=== PATIENT | female | born 1995 | race Two or more races ===

== ENCOUNTER 2019-04-29 00:14 | Inpatient (IN) | payer MEDICAID, OTHER ==
[~2019-04-29] VITALS: Ht 157.5 cm; Wt 60.8 kg
[2019-04-29] MEDS ORDERED: OMEP10 PO (01:56)
[2019-04-29] MEDS ORDERED: SODIUM CHLORIDE 0.9% 1,000 ML IV ONE (02:00)
[2019-04-29 03:02] LABS: BASOPHILS % (AUTO) 0.3 % (0.0-2.0); EOSINOPHILS % (AUTO) 0.3 % (1.0-6.0); HEMATOCRIT 41.7 % (36-46); LYMPHOCYTES # (AUTO) 2.3 K/uL (1.0-4.8); LYMPHOCYTES % (AUTO) 22.9 % (22.0-44.0); MEAN CORPUSCULAR HEMOGLOBIN 30.3 pg (26.0-34.0); MEAN CORPUSCULAR HGB CONC 33.6 G/dL (31.0-37.0); MEAN CORPUSCULAR VOLUME 90 fL (80-100); MONOCYTES # (AUTO) 0.5 K/uL (0.1-1.0); MONOCYTES % (AUTO) 5.1 % (2.0-9.0); NEUTROPHILS # (AUTO) 7.3 K/uL (1.8-7.7); NEUTROPHILS % (AUTO) 71.4 % (40.0-70.0); PLATELET COUNT (AUTO) 339 K/uL (150-450); RED BLOOD CELL COUNT(AUTO) 4.63 MIL/uL (4.00-5.20); RED CELL DISTRIBUTION WIDTH 12.5 % (11.5-14.5)
[2019-04-29 03:08] LABS: ANION GAP 13 mmol/L (8-16); CALCIUM, TOTAL 10.2 mg/dL (8.8-10.5); CARBON DIOXIDE 24 mmol/L (22-29); CHLORIDE 100 mmol/L (98-107); CREATININE 0.61 mg/dL (0.60-1.30); GLOMERULAR FILTR. RATE CALC > 60 mL/min (>60); GLUCOSE,RANDOM 105 mg/dL (70-110); SODIUM SERUM 137 mmol/L (136-145); UREA NITROGEN, BLOOD 7 mg/dL (7-18)
[2019-04-29 03:11] LABS: ALANINE AMINOTRANSFERASE 69 U/L (12-78); ALBUMIN 5.2 g/dL (3.4-5.0); ALKALINE PHOSPHATASE 40 U/L (46-116); ASPARTATE AMINOTRANSFERASE 27 U/L (15-37); BILIRUBIN,TOTAL 0.4 mg/dL (0.1-1.0); TOTAL PROTEIN, SERUM 9.2 g/dL (6.4-8.2)
[2019-04-29 03:14] LABS: ACETAMINOPHEN < 2 mcg/mL (10-30)
[2019-04-29 03:14] LABS: AMPHET/METH SCREEN,URINE NEGATIVE (NEGATIVE); BARBITURATE SCREEN, URINE NEGATIVE (NEGATIVE); BENZODIAZEPINES SCREEN,URINE NEGATIVE (NEGATIVE); CANNABINOID SCREEN,URINE NEGATIVE (NEGATIVE); COCAINE SCREEN,URINE NEGATIVE (NEGATIVE); METHADONE SCREEN, URINE NEGATIVE (NEGATIVE); OPIATE SCREEN,URINE NEGATIVE (NEGATIVE)
[2019-04-29 03:15] LABS: PHENCYCLIDINE SCREEN,URINE NEGATIVE (NEGATIVE)
[2019-04-29 03:21] LABS: SALICYLATE 1.5 mg/dL (2.8-20.0)
[2019-04-29 03:39] LABS: LACTIC ACID 1.3 mmol/L (0.4-2.0)
[2019-04-29 06:07] LABS: SALICYLATE 10.9 mg/dL (2.8-20.0)
[2019-04-29 06:16] LABS: ACETAMINOPHEN < 2 mcg/mL (10-30)
[2019-04-29 09:11] LABS: ANION GAP 17 mmol/L (8-16); CALCIUM, TOTAL 9.1 mg/dL (8.8-10.5); CARBON DIOXIDE 19 mmol/L (22-29); CHLORIDE 109 mmol/L (98-107); CREATININE 0.67 mg/dL (0.60-1.30); GLOMERULAR FILTR. RATE CALC > 60 mL/min (>60); GLUCOSE,RANDOM 102 mg/dL (70-110); SODIUM SERUM 145 mmol/L (136-145); UREA NITROGEN, BLOOD 6 mg/dL (7-18)
[2019-04-29] MEDS ORDERED: ZOLPIDEM TARTRATE 10 MG TABLET PO PRN (14:45)
[2019-04-29] MEDS ORDERED: HALOPERIDOL 5 MG TABLET PO PRN (14:45)
[2019-04-29] MEDS ORDERED: LORazepam 2 MG TABLET PO PRN (14:45)
[2019-04-29 16:05] VITALS: BP 121/62
[2019-04-29] MEDS ORDERED: INFLUENZA VIRUS VACCINE QVS 2019-20 (3YR+)/PF 60 MCG/0.5 ML SYRINGE IM ONE (19:30)
[2019-04-29 20:07] VITALS: BP 130/82
[2019-04-29] MEDS ORDERED: MAG HYDROX/AL HYDROX/SIMETH ES 30 ML SUSPENSION UDCUP PO PRN (21:00)
[2019-04-29] MEDS ORDERED: CloNIDine HCL 0.1 MG TABLET PO PRN (21:00)
[2019-04-29] MEDS ORDERED: LOPERAMIDE HCL 2 MG CAPSULE PO PRN (21:00)
[2019-04-29] MEDS ORDERED: ALBUTEROL SULFATE HFA 90 MCG/PUFF 8 GM INHALER IH PRN (21:00)
[2019-04-29] MEDS ORDERED: DOCUSATE SODIUM 100 MG CAPSULE PO PRN (21:00)
[2019-04-29] MEDS ORDERED: PETROLATUM,WHITE 28 GM JELLY TP PRN (21:00)
[2019-04-29] MEDS ORDERED: NICOTINE 14 MG/24 HOUR PATCH TD PRN (21:00)
[2019-04-29] MEDS ORDERED: ONDANSETRON HCL 4 MG TABLET PO PRN (21:00)
[2019-04-29] MEDS ORDERED: MAGNESIUM HYDROXIDE SUSPENSION 30 ML UDCUP PO PRN (21:00)
[2019-04-29] MEDS ORDERED: GuaiFENesin/D-METHORPHAN [SUGAR-FREE] 200-20MG/10 ML SYRUP UDCUP PO PRN (21:00)
[2019-04-29] MEDS ORDERED: ACETAMINOPHEN 325 MG TABLET PO PRN (21:00)
[2019-04-29] MEDS ORDERED: IBUPROFEN 400 MG TABLET PO PRN (21:00)
[2019-04-30 01:06] VITALS: BP 115/59
[2019-04-30 08:01] VITALS: BP 118/72
[2019-04-30 08:11] LABS: CHOL/HDL RATIO 6.5 (3.9-5.7); FREE T4 (FREE THYROXINE) 1.03 ng/dL (0.76-1.46); THYROID STIMULATING HORMONE 1.29 uIU/mL (0.36-3.74)
[2019-04-30] MEDS: OMEPRAZOLE 20 MG CAPSULE PO SCH (08:35)
[2019-04-30 16:04] VITALS: BP 101/62
[2019-04-30] MEDS: SIMVASTATIN 10 MG TABLET PO SCH (20:18)
[2019-05-01 05:00] VITALS: BP 124/73
[2019-05-01 08:29] VITALS: BP 110/63
[2019-05-01] MEDS: OMEPRAZOLE 20 MG CAPSULE PO SCH (08:53)
[2019-05-01] MEDS: FLUoxetine HCL 20 MG CAPSULE PO SCH (12:32)
[2019-05-01 16:13] VITALS: BP 116/64
[2019-05-01] MEDS: SIMVASTATIN 10 MG TABLET PO SCH (20:54)
[2019-05-02 06:35] VITALS: BP 104/61
[2019-05-02 08:30] VITALS: BP 103/64
[2019-05-02] MEDS: OMEPRAZOLE 20 MG CAPSULE PO SCH (08:33)
[2019-05-02] MEDS: FLUoxetine HCL 20 MG CAPSULE PO SCH (08:33)
[2019-05-02] MEDS ORDERED: SIMV-259 PO (11:00)
[2019-05-02] MEDS ORDERED: OMEP20 PO (11:00)
[2019-05-02] MEDS ORDERED: FLUO-191 PO (11:00)
== END 2019-05-02 12:25 | disposition home or self-care (01) | DRG 751 ==
LOC: EMS 00:14 → B3A 14:54 → B2S 17:34
PROVIDERS: ADMIT Psychiatry & Neurology Psychiatry; ATTEND Psychiatry & Neurology Psychiatry
DX: F33.2 Major depressive disorder, recurrent severe without psychotic features (principal); R45.851 Suicidal ideations; E78.5 Hyperlipidemia, unspecified; R00.0 Tachycardia, unspecified; F19.10 Other psychoactive substance abuse, uncomplicated; K21.9 Gastro-esophageal reflux disease without esophagitis; Z91.5 Personal history of self-harm; Z23 Encounter for immunization; Z79.899 Other long term (current) drug therapy; Z88.8 Allergy status to other drugs, medicaments and biological substances; Z71.51 Drug abuse counseling and surveillance of drug abuser
CPT/HCPCS: 83605; 84439; 84443; 90686; G0480; G0481; J7030